=== PATIENT | male | born 1990 | race Two or more races ===

== ENCOUNTER 2021-01-29 21:56 | Emergency (ER) | payer BC, OTHER ==
[2021-01-29] MEDS ORDERED: Acetaminophen/HYDROcodone 325-10 MG Tab PO ONE (22:19)
--- NOTE | 2021-01-29 22:27 | EDM.PDOC ---
ED HPI GENERAL MEDICAL PROBLEM - General Chief Complaint: Upper Extremity Injury/Pain Stated Complaint: LT WRIST INJURY Time Seen by Provider: 01/29/21 22:17 - History of Present Illness INITIAL COMMENTS - FREE TEXT/NARRATIVE: Otherwise well 31-year-old male presents with left wrist pain after fall. Patient states that he slipped on a wet patch in the parking lot at [facility]. He did not strike his head he did not lose consciousness he has moderate pain in the left wrist that worsens with attempted range of motion. It does not radiate. ROS: Neck: No neck stiffness. Respiratory: No shortness of breath. Cardiac: No chest pain. Gastrointestinal: No nausea, vomiting or abdominal pain. Musculoskeletal: Per HPI Neurologic: No headache. Left Wrist Pain Score (Numeric/FACES): 7 - Related Data Allergies Allergy/AdvReac Type Severity Reaction Status Date / Time No Known Allergies Allergy Verified 01/29/21 22:04 Home Meds: Home Meds . [No Known Home Meds] 10/17/17 [History] Past Medical History - Past Health History Medical/Surgical History: Denies Medical/Surgical History Social & Family History - Family History Family Medical History: No Pertinent Family History - Tobacco Use Tobacco Use Status *Q: Never Tobacco User - Recreational Drug Use Recreational Drug Use: No Review of Systems - Review of Systems Review Of Systems: See Below ED EXAM, GENERAL - Physical Exam Exam: See Below Free Text/Narrative:: General Appearance: No acute distress, appears comfortable Skin: No rash HEENT: Normocephalic/atraumatic, sclera anicteric, mucous membranes moist Neck: Normal range of motion Chest and Lungs: Normal work of breathing Cardiovascular: Intact distal perfusion Musculoskeletal: 2+ left radial pulse median radial and ulnar nerves intact in the left hand significant tenderness over the distal radius as well as in the anatomic snuffbox. Neurologic: Awake, alert, no obvious deficits, moving all extremities Psychiatric: Appropriate, cooperative Course - Vital Signs Last Recorded V/S: Last Vital Signs Temp 97.6 F 01/29/21 22:04 Pulse 68 01/29/21 22:04 Resp 20 01/29/21 22:04 BP 123/71 01/29/21 22:04 Pulse Ox 96 01/29/21 22:04 - Orders/Labs/Meds Meds: Medications Discontinued Medications Generic Name Dose Route Start Last Admin Trade Name Freq PRN Reason Stop Dose Admin Hydrocodone Bitart/Acetaminophen 1 tab 01/29/21 22:19 01/29/21 22:25 Acetaminophen/Hydrocodone 325-10 Mg Tab PO 01/29/21 22:20 1 tab ONETIME ONE Administration Departure - Departure Time of Disposition: 23:13 Disposition: Home, Self-Care 01 Condition: Good Clinical Impression: Wrist pain - Discharge Information *PRESCRIPTION DRUG MONITORING PROGRAM REVIEWED*: Not Applicable *COPY OF PRESCRIPTION DRUG MONITORING REPORT IN PATIENT MAN: Not Applicable Instructions: Cast or Splint Care, Adult, [id number] Forms: ED Department Discharge Additional Instructions: Your x-rays today did not show any broken bones. However you have pain and tenderness over bone that sometimes does not show its break on the initial x- ray. For this reason you have been placed in a thumb spica to help protect this area. I encourage you to follow-up with the hand specialist in [place]. You could see Dr. Horn, or one of his partners. Dr. Horn / Dr. Carter [address] [place] [address], [place] [address] [facility] Floor [phone] The following information is given to patients seen in the emergency department who are being discharged to home. This information is to outline your options for follow-up care. We provide all patients seen in our emergency department with a follow-up referral. The need for follow-up, as well as the timing and circumstances, are variable depending upon the specifics of your emergency department visit. If you don't have a primary care physician on staff, we will provide you with a referral. We always advise you to contact your personal physician following an emergency department visit to inform them of the circumstance of the visit and for follow-up with them and/or the need for any referrals to a consulting specialist. The emergency department will also refer you to a specialist when appropriate. This referral assures that you have the opportunity for follow-up care with a specialist. All of these measure are taken in an effort to provide you with optimal care, which includes your follow-up. Under all circumstances we always encourage you to contact your private physician who remains a resource for coordinating your care. When calling for follow-up care, please make the office aware that this follow-up is from your recent emergency room visit. If for any reason you are refused follow-up, please contact the [facility] Emergency Depart ment at and asked to speak to the emergency department charge nurse. Sepsis Event Note (ED) - Focused Exam Vital Signs: Vital Signs Temp Pulse Resp BP Pulse Ox 01/29/21 22:04 97.6 F 68 20 123/71 96 - Assessment/Plan Assessment:: 31-year-old male presenting with signs and symptoms that are concerning for left wrist fracture patient does have snuffbox tenderness and if x-ray negative will need a thumb spica and hand surgery referral. [place] given for pain as patient is not driving home. 2315: X-ray negative. Given persistent snuffbox tenderness patient placed in thumb spica and encouraged to follow-up with hand surgery in [place].
--- NOTE | 2021-01-29 23:10 | CR ---
INDICATION: Wrist pain status post fall TECHNIQUE: Wrist radiograph 2 views left COMPARISON: None FINDINGS: Bone: No acute fractures or aggressive bone lesions are identified. Joint: The radiocarpal, carpal, and carpometacarpal joints are unremarkable in appearance. Soft tissue: Unremarkable. No radiopaque foreign bodies are seen. IMPRESSION: 1. No acute osseous injuries or abnormalities are noted. Dictated by: David Ortega MD @ 01/29/2021 23:09:53 (Electronically Signed)
== END 2021-01-29 23:30 | disposition home or self-care (01) ==
LOC: MW.ED 21:56
DX: M25.532 Pain in left wrist (principal)
CPT/HCPCS: 73100; 99283; A9270

== ENCOUNTER 2021-05-10 09:00 | Emergency (ER) | payer BC ==
[2021-05-10] MEDS ORDERED: Ibuprofen 600 MG Tab PO ONE (10:33)
== END 2021-05-10 10:34 | disposition home or self-care (01) ==
LOC: MW.ED 09:00
DX: S63.501A Unspecified sprain of right wrist, initial encounter (principal); G56.01 Carpal tunnel syndrome, right upper limb; X50.0XXA Overexertion from strenuous movement or load, initial encounter
CPT/HCPCS: 73110-26-RT; 73110-RT; 99283-25

== ENCOUNTER 2021-09-08 06:46 | Emergency (ER) | payer BC ==
[2021-09-08] MEDS ORDERED: methylPREDNISolone Sodium Succinate 125 MG/2 ML SDV IVPUSH ONE (06:55)
[2021-09-08] MEDS ORDERED: Sodium Chloride 0.9% 10 ML Syringe FLUSH PRN (06:55)
[2021-09-08] MEDS ORDERED: Albuterol/Ipratropium 3.0-0.5 MG/3 ML Neb Soln NEB ONE (06:55)
[2021-09-08] MEDS ORDERED: Sodium Chloride 0.9% 2.5 ML Syringe FLUSH PRN (06:55)
[2021-09-08 07:28] LABS: BLOOD UREA NITROGEN,BUN 9 mg/dL (7.0-18.0); CARBON DIOXIDE,CO2 24.2 mmol/L (21.0-32.0); CHLORIDE,CL 103 mmol/L (98-107); GLUCOSE RANDOM 104 mg/dL (74-106); POTASSIUM,K 3.5 mmol/L (3.5-5.1); SODIUM,NA 139 mmol/L (136-148)
== END 2021-09-08 10:34 | disposition home or self-care (01) ==
LOC: MW.ED 06:46
DX: J45.901 Unspecified asthma with (acute) exacerbation (principal); F10.129 Alcohol abuse with intoxication, unspecified; Z28.310 Unvaccinated for COVID-19; Z20.822 Contact with and (suspected) exposure to COVID-19; Y90.7 Blood alcohol level of 200-239 mg/100 ml
CPT/HCPCS: 36415; 36600; 71045; 71045-26; 80053; 80307; 82803; 83880; 84484; 85025; 93005; 96374; 99285-25; J2930; J7620-GY; U0002

== ENCOUNTER 2024-05-05 21:17 | Emergency (ER) | payer BC ==
[2024-05-05] MEDS ORDERED: Sodium Chloride 0.9% 2.5 ML Syringe FLUSH PRN (21:27)
[2024-05-05] MEDS ORDERED: Sodium Chloride 0.9% 10 ML Syringe FLUSH PRN (21:27)
[2024-05-05 22:16] LABS: BASOPHILS ABSOLUTE AUTO 0.03 K/uL (0.00-0.20); BASOPHILS PERCENT AUTO 0.4 % (0.0-1.0); EOSINOPHILS ABSOLUTE AUTO 0.09 K/uL (0.00-0.45); EOSINOPHILS PERCENT AUTO 1.3 % (0.0-6.0); HEMOGLOBIN 14.7 g/dL (14.0-18.0); IMMATURE GRAN ABSOLUTE AUTO 0.01 K/uL (0.00-0.05); IMMATURE GRAN PERCENT AUTO 0.1 % (0.0-0.4); LYMPHOCYTES ABSOLUTE AUTO 2.42 K/uL (1.00-4.80); LYMPHOCYTES PERCENT AUTO 35.8 % (24.0-44.0); MEAN CORPUSCULAR HEMOGLOBIN 28.1 pg (28.0-32.0); MEAN CORPUSCULAR VOLUME 80.2 fL (83.0-99.0); MEAN PLATELET VOLUME 8.9 fL (9.4-12.4); MONOCYTES ABSOLUTE AUTO 0.56 K/uL (0.00-0.80); MONOCYTES PERCENT AUTO 8.3 % (0.0-8.0); NEUTROPHILS ABSOLUTE AUTO 3.65 K/uL (1.80-7.70); NEUTROPHILS PERCENT AUTO 54.1 % (41.0-71.0); PLATELET COUNT,PLT 171 K/uL (150-400); RED BLOOD CELL COUNT 5.24 M/uL (4.52-5.90); WHITE BLOOD CELL COUNT,WBC 6.76 K/uL (3.9-11.3)
[2024-05-05] MEDS: Sodium Chloride 0.9% 1,000 ML IV STA (22:30)
[2024-05-05] MEDS: Magnesium Sulfate/Water Premix 2 GM in Premix Bag 1 BAG IV STA (22:31)
[2024-05-05] MEDS: Metoclopramide 10 MG/2 ML SDV IVPUSH STA (22:31)
[2024-05-05] MEDS: diphenhydrAMINE 50 MG/ML SDV IVPUSH STA (22:31)
[2024-05-05 22:57] LABS: MAGNESIUM 2.2 mg/dL (1.8-2.4)
[2024-05-05 23:03] LABS: A/G RATIO 1.2 (0.9-1.6); ALBUMIN 3.7 g/dL (3.4-5.0); BILIRUBIN TOTAL 0.8 mg/dL (0.2-1.0); CALCIUM 8.7 mg/dL (8.5-10.1); CARBON DIOXIDE,CO2 23.1 mmol/L (21.0-32.0); CREATININE 0.8 mg/dL (0.8-1.3); EST CRCL DRUG DOSING (CG) 140.11 mL/min; POTASSIUM,K 3.3 mmol/L (3.5-5.1); PROTEIN TOTAL,TP 6.7 g/dL (6.4-8.2)
== END 2024-05-06 01:08 | disposition home or self-care (01) ==
LOC: MW.ED 21:17
DX: R07.89 Other chest pain (principal); F17.210 Nicotine dependence, cigarettes, uncomplicated
CPT/HCPCS: 36415; 70450; 71046; 80053; 83690; 83735; 84484; 85025; 93005; 96365; 96375; 99285; J1200; J2765; J3475; J7030

== ENCOUNTER 2024-06-05 21:23 | Emergency (ER) | payer SELFPAY ==
[2024-06-06] MEDS: Acetaminophen 500 MG Tab PO ONE (00:48)
[2024-06-06] MEDS: Ibuprofen 600 MG Tab PO ONE (00:48)
== END 2024-06-06 00:59 | disposition home or self-care (01) ==
LOC: MW.ED 21:23
DX: J02.9 Acute pharyngitis, unspecified (principal); J06.9 Acute upper respiratory infection, unspecified; E86.0 Dehydration; Z75.8 Other problems related to medical facilities and other health care; Z98.84 Bariatric surgery status
CPT/HCPCS: 87428; 87651; 96374; 99283; A9270; J1100